=== PATIENT | male | born 1985 | race American Indian/Alaskan Native ===

== ENCOUNTER 2018-03-17 16:33 | Emergency (ER) | payer OTHER ==
[2018-03-17 16:39] VITALS: BP 166/89
[2018-03-17] MEDS ORDERED: TORADOL IM ONE (18:08)
--- NOTE | 2018-03-17 18:12 | Emergency Department Report ---
ED Lower Extremity HPI - General Chief Complaint: Extremity Injury, Lower Stated Complaint: ANKLE PAIN Time Seen by Provider: 03/17/18 17:51 Source: patient Mode of arrival: Ambulatory Limitations: No Limitations - History of Present Illness Initial Comments: Patient is a 32-year-old -[place] male who comes to the ER today complaining of severe right foot pain. He fractured the foot 4 years ago and since then when he gets cold he has pain. Temperatures are falling today into the 30s and he is here with pain. He took Motrin at home and it did not help. Patient denies major medical problems and is on no medicines at home daily. There is no new trauma MD Complaint: ankle injury Injury: Ankle: Right - Related Data Previous Rx's Medication Instructions Recorded Last Taken Type predniSONE [Deltasone] 20 mg PO DAILY #5 tablet 03/17/18 Unknown Rx Allergies Allergy/AdvReac Type Severity Reaction Status Date / Time No Known Allergies Allergy Verified 03/17/18 16:36 ED Review of Systems ROS: Stated complaint: ANKLE PAIN Other details as noted in HPI Comment: All other systems reviewed and negative Constitutional: denies: see HPI Eyes: denies: eye pain ENT: denies: ear pain Respiratory: denies: orthopnea Cardiovascular: denies: chest pain Endocrine: denies: flushing Gastrointestinal: denies: abdominal pain Genitourinary: denies: urgency Musculoskeletal: other Skin: denies: rash Neurological: denies: headache Psychiatric: denies: anxiety Hematological/Lymphatic: denies: easy bleeding (right ankle pain) ED Past Medical Hx - Past Medical History Previous Medical History?: No - Surgical History Past Surgical History?: No - Social History Smoking Status: Never Smoker Substance Use Type: None - Medications Home Medications: Home Medications Medication Instructions Recorded Confirmed Last Taken Type predniSONE [Deltasone] 20 mg PO DAILY #5 tablet 03/17/18 Unknown Rx ED Physical Exam - General Limitations: No Limitations General appearance: alert - Head Head exam: Present: atraumatic - Eye Eye exam: Present: normal appearance, PERRL Pupils: Present: normal accommodation - ENT ENT exam: Present: mucous membranes moist - Neck Neck exam: Present: normal inspection - Respiratory Respiratory exam: Present: normal lung sounds bilaterally - Cardiovascular Cardiovascular Exam: Present: regular rate - GI/Abdominal GI/Abdominal exam: Present: soft - Rectal Rectal exam: Present: deferred - Extremities Exam Extremities exam: Present: normal inspection - Expanded Lower Extremity Exam Right Lower Leg exam: Present: normal inspection Ankle exam: Present: full ROM. Absent: tenderness, swelling, abrasion, laceration, ecchymosis, deformity, crepidus, dislocation, erythema Foot/Toe exam: Present: normal inspection Neuro vascular tendon exam: Present: no vascular compromise ED Course Vital Signs 03/17/18 16:36 Temperature 98.5 F Pulse Rate 100 H Respiratory 20 Rate Blood Pressure 166/89 O2 Sat by Pulse 100 Oximetry ED Lower Extremity MDM - Medical Decision Making chronic pain now with pain w temperature change medicated for pain educated on pain with old fractures dc home with pcp follow up - Differential Diagnosis chronic pain Critical care attestation.: If time is entered above; I have spent that time in minutes in the direct care of this critically ill patient, excluding procedure time. ED Disposition Clinical Impression: Chronic ankle pain Disposition: DC-01 TO HOME OR SELFCARE Is pt being admited?: No Does the pt Need Aspirin: No Condition: Stable Instructions: Osteoarthritis (ED) Additional Instructions: Continue Motrin and/or Tylenol for pain Take prednisone as instructed. Follow-up with orthopedic doctor if pain persists Referrals: ESTHER OCAMPO MD [Primary Care Provider] - 3-5 Days ERLINDA NAVAS MD [Staff Physician] - 3-5 Days Time of Disposition: 18:11
[2018-03-17] MEDS ORDERED: DELTASONE PO SCH (19:00)
== END 2018-03-17 18:26 | disposition home or self-care (01) ==
LOC: ED 16:33
DX: M25.571 Pain in right ankle and joints of right foot (principal); G89.29 Other chronic pain
CPT/HCPCS: 96372; 99282; J1885; J7512

== ENCOUNTER 2018-04-11 17:46 | Emergency (ER) | payer SELFPAY ==
--- NOTE | 2018-04-11 18:31 | Emergency Department Report ---
Chief Complaint: Extremity Injury, Lower Stated Complaint: RT ANKLE PAIN/PRESSURE Time Seen by Provider: 04/11/18 18:31 - HPI History of Present Illness: A/C RIGHT ANKLE PAIN MSE COMPLETED MSE screening note: Focused history and physical exam performed. Due to findings the following was ordered: ED Disposition for MSE Condition: Stable
--- NOTE | 2018-04-11 19:16 | XRay Report ---
FINAL REPORT PROCEDURE: Right ankle. TECHNIQUE: Three views. HISTORY: Ankle pain. COMPARISON: No prior studies are available for comparison. FINDINGS: The bones appear intact without fracture or dislocation. The joint spaces appear normal. The soft tis sues are unremarkable. IMPRESSION: Normal study.
--- NOTE | 2018-04-11 21:29 | Emergency Department Report ---
ED Extremity Problem HPI - General Chief complaint: Extremity Injury, Lower Stated complaint: RT ANKLE PAIN/PRESSURE Time Seen by Provider: 04/11/18 18:31 Source: patient Mode of arrival: Ambulatory Limitations: No Limitations - History of Present Illness Initial comments: This is a 32-year-old patient here report that he is having in right outer ankle pain that started last night. He said he injured his right ankle several years ago when he was in college and he has occasional pain. He reports flareup. Denies any injury. Denies any redness or swelling. Pain is 6 out of 10 walk- in. No medication taken. Denies any fever or chills .denies any shortness of breath or chest pain MD Complaint: joint paint -: Last night Location: right, other (ankle) History of Same: Yes -: No myalgia, Yes arthralgia, No associated dyspnea, No associated chest pain Radiation: none Severity scale (0 -10): 6 Quality: aching Consistency: intermittent Improves with: rest Worsens with: weight bearing, walking Associated Symptoms: arthralgias. denies: chest pain, shortness of breath, fever, myalgias, rash - Related Data Previous Rx's Medication Instructions Recorded Last Taken Type predniSONE [Deltasone] 20 mg PO DAILY #5 tablet 03/17/18 Unknown Rx traMADol [Ultram 50 MG tab] 50 mg PO Q6HR PRN #12 tablet 04/11/18 Unknown Rx Allergies Allergy/AdvReac Type Severity Reaction Status Date / Time No Known Allergies Allergy Verified 03/17/18 16:36 ED Review of Systems ROS: Stated complaint: RT ANKLE PAIN/PRESSURE Other details as noted in HPI Constitutional: denies: chills, fever Respiratory: denies: cough, shortness of breath, wheezing Cardiovascular: denies: chest pain, palpitations, edema, syncope Gastrointestinal: denies: nausea, vomiting Musculoskeletal: arthralgia. denies: back pain, joint swelling, myalgia Skin: denies: rash Neurological: denies: headache, numbness, paresthesias, abnormal gait, vertigo ED Past Medical Hx - Past Medical History Previous Medical History?: No - Surgical History Past Surgical History?: No - Family History Family history: no significant - Social History Smoking Status: Never Smoker Substance Use Type: None - Medications Home Medications: Home Medications Medication Instructions Recorded Confirmed Last Taken Type predniSONE [Deltasone] 20 mg PO DAILY #5 tablet 03/17/18 Unknown Rx traMADol [Ultram 50 MG tab] 50 mg PO Q6HR PRN #12 tablet 04/11/18 Unknown Rx ED Physical Exam - General Limitations: No Limitations General appearance: alert, in no apparent distress - Head Head exam: Present: atraumatic, normocephalic - Eye Eye exam: Present: normal appearance, PERRL, EOMI Pupils: Present: normal accommodation - ENT ENT exam: Present: normal exam, normal orophraynx, mucous membranes moist - Neck Neck exam: Present: normal inspection, full ROM. Absent: tenderness - Respiratory Respiratory exam: Present: normal lung sounds bilaterally. Absent: respiratory distress, chest wall tenderness - Cardiovascular Cardiovascular Exam: Present: regular rate, normal rhythm, normal heart sounds - Extremities Exam Extremities exam: Present: normal inspection, full ROM, normal capillary refill, other (No cce. + 2 pulses in all extremities, no neurovascular compromise except patient has tenderness palpated to right inner ankle. No bruising or swelling noted.). Absent: tenderness, pedal edema, joint swelling, calf tenderness - Back Exam Back exam: Present: normal inspection, full ROM, other (ambulates without any difficulties) - Neurological Exam Neurological exam: Present: alert, oriented X3, normal gait. Absent: motor sensory deficit - Psychiatric Psychiatric exam: Present: normal affect, normal mood - Skin Skin exam: Present: warm, dry, intact, normal color. Absent: rash ED Course Vital Signs 04/11/18 18:33 Temperature 98.3 F Pulse Rate 80 Respiratory 16 Rate Blood Pressure 161/87 O2 Sat by Pulse 99 Oximetry - Reevaluation(s) Reevaluation #1: 04/11/18 22:45 Patient had an uneventful ED stay ED Medical Decision Making - Radiology Data Radiology results: report reviewed X-ray right ankle dictated by radiologist and reported to myself and no acute findings. Findings [facility] [address] [place] [address] XRay Report Signed Patient: CHRIS ARENAS MR#: [id number] : 1985 Acct:[id number] Age/Sex: 32 / M ADM Date: 04/11/18 Loc: ED Attending Dr: Ordering Physician: AGA MALONE Date of Service: 04/11/18 Procedure(s): XR ankle 2V RT Accession Number(s): [id number] cc: AGA JaydonKatrin MALONE Fluoro Time In Minutes: FINAL REPORT PROCEDURE: Right ankle. TECHNIQUE: Three views. HISTORY: Ankle pain. COMPARISON: No prior studies are available for comparison. FINDINGS: The bones appear intact without fracture or dislocation. The joint spaces appear normal. The soft tissues are unremarkable. IMPRESSION: Normal study. Transcribed By: MRM Dictated By: SARAH SERRA MD Electronically Authenticated By: SARAH SERRA MD Signed Date/Time: 04/11/181915 DD/ 14 TD/TT: 04/11/181914 - Medical Decision Making This is a 32-year-old male with chronic right ankle pain after injury and in college several years ago. He is reporting that he had severe pain last night. Patient ankle was discussed in except for minimal tenderness to right inner ankle, he is stable. X-ray right ankle dictated by radiologist's report from [facility] and no acute findings. I discussed x-ray reported patient's and diagnosed the treatment plan and he voiced understanding. He is to follow-up with orthopedic doctor for chronic ankle pain posttraumatic injury. Patient discharged home with prescription for Ultram. Vital signs stable he is afebrile - Differential Diagnosis FX, dislocation, strain, sprain, MSK pain, gout Critical care attestation.: If time is entered above; I have spent that time in minutes in the direct care of this critically ill patient, excluding procedure time. ED Disposition Clinical Impression: Arthralgia of right ankle Disposition: DC-01 TO HOME OR SELFCARE Is pt being admited?: No Does the pt Need Aspirin: No Condition: Stable Instructions: Arthralgia (ED), Ankle Exercises (GEN) Additional Instructions: Please follow up with orthopedic doctor for chronic ankle pain. Take Ultram for pain as prescribed but please do not drive or operate heavy machinery as this medication causes drowsiness Referrals: ERLINDA NAVAS MD [Staff Physician] - 2-3 Days Forms: Work/School Release Form(ED)
[2018-04-11 23:18] VITALS: BP 128/68
== END 2018-04-11 23:19 | disposition home or self-care (01) ==
LOC: ED 17:46
DX: M25.571 Pain in right ankle and joints of right foot (principal)